=== PATIENT | female | born 1995 | race Caucasian/White ===

== ENCOUNTER 2020-07-08 10:18 | Outpatient (CLI) | payer OTHER, SELFPAY ==
[2020-07-08 11:43] LABS: Hematocrit 39.4 % (37.0-47.0); Hemoglobin 12.8 g/dL (12.0-15.0)
[2020-07-08 11:57] LABS: Glucose 1 Hour PP 50gm Dose 128 mg/dL
[2020-07-08 12:37] LABS: HIV 1/2 Ab P24 Ag Result Negative (Negative)
[2020-07-09 09:32] LABS: Rapid Plasma Reagin Non-Reactive (NonReactive)
== END 2020-07-08 10:19 | disposition home or self-care (01) ==
PROVIDERS: Family Provider Pediatrics; PCP Internal Medicine; Visit Provider Obstetrics & Gynecology
DX: O36.0130 Maternal care for anti-D [Rh] antibodies, third trimester, not applicable or unspecified (principal); Z3A.00 Weeks of gestation of pregnancy not specified
CPT/HCPCS: 36415; 82947; 85014; 85018; 86592; 86703; G0432

== ENCOUNTER 2020-08-27 15:11 | Observation (INO) | payer OTHER, SELFPAY ==
[2020-08-27] VITALS (8 sets, daily range): BP systolic 108–127; BP diastolic 63–81; PULSE 97–108; RESP 20; TEMP 36.5–37.3; BMI 35.9
--- NOTE | 2020-08-27 15:45 | LDADM ---
This patient, [place] Roy, was admitted to [facility] on 08/27/20 at 15:11. Plans for labor, pain management and were discussed with patient. Patient oriented to hospital policies and general routines including ID bracelet, bed and alarms, visiting hours, pain management, procedures, bathroom and other care routines, personal items, smoking policy, room service/diet and guest tray routines, infant security routines, call light, and visiting hours. Patient is encouraged to report perceived risks to care and to ask questions if she does not understand what she is told or what she should do. See OBIX for further documentation.
[2020-08-27 16:17] LABS: Basophils Absolute Auto 0.1 K/mm3 (0.0-0.1); Basophils Percent Auto 0.3 % (0.2-1.2); Eosinophils Absolute Auto 0.1 K/mm3 (0-0.3); Eosinophils Percent Auto 0.3 % (0-4.4); Hematocrit 36.5 % (37.0-47.0); Immature Granulocyte Absolute 0.23 K/mm3 (0.00-0.031); Immature Granulocyte Percent A 1.5 % (0-0.5); Lymphocytes Absolute Auto 2.12 K/mm3 (0.9-3.2); Lymphocytes Percent Auto 13.8 % (18.3-44.2); Mean Corpuscular HGB Conc 32.9 g/dl (32-36); Mean Corpuscular Hemoglobin 28.3 pg (26-34); Mean Corpuscular Volume 86.1 fl (80-100); Mean Platelet Volume 9.2 fl (7.4-10.4); Monocytes Absolute Auto 1.1 K/mm3 (0.1-0.6); Neutrophils Absolute Auto 11.8 K/mm3 (1.3-6.7); Neutrophils Percent Auto 77.1 % (45.5-73.1); Platelet Count Result 349 k/mm3 (150-375); Red Blood Count 4.24 M/mm3 (4.2-5.4); Red Cell Distribution Width 13.2 % (11.5-14.5); White Blood Count 15.3 K/mm3 (4.5-10.0)
[2020-08-27 16:30] LABS: Alanine Aminotransferase 11 U/L (4-35); Albumin Level 3.6 g/dL (3.5-5.1); Alkaline Phosphatase 103 U/L (38-126); Anion Gap 7 mmol/L (8-16); Aspartate Amino Transferase 18 U/L (14-36); Bilirubin,Total 0.1 mg/dL (0.2-1.3); Blood Urea Nitrogen 9 mg/dL (7-17); Calcium 8.8 mg/dL (8.4-10.2); Carbon Dioxide 22 mmol/L (22-30); Chloride 106 mmol/L (98-107); Estimated CRCL calculation 151 ml/min; Estimated Glomerular Filt Rate > 60; Glucose 117 mg/dL (65-105); Potassium 3.5 mmol/L (3.4-5.0); Sodium 135 mmol/L (137-145); Uric Acid 5.6 mg/dL (2.5-7.5)
--- NOTE | 2020-08-31 19:49 | PM.OBTRLD ---
OB - Triage/Final Diagnosis Visit Information Date of evaluation: 08/27/20 Reason for evaluation: decreased movement Comments/Additional reasons for admission: I have assessed the risk for this patient, [place], and determined that she would benefit from observation care. Evaluation Laboratory results: Laboratory Tests 08/27/20 08/27/20 08/27/20 16:04 16:04 16:04 WBC 15.3 H RBC 4.24 Hgb 12.0 Hct 36.5 L MCV 86.1 MCH 28.3 MCHC 32.9 RDW 13.2 Plt Count 349 MPV 9.2 Immature Gran % (Auto) 1.5 H Neut % (Auto) 77.1 H Lymph % (Auto) 13.8 L [place] % (Auto) 7.0 Eos % (Auto) 0.3 Baso % (Auto) 0.3 Lymph # (Auto) 2.12 [place] # (Auto) 1.1 H Eos # (Auto) 0.1 Baso # (Auto) 0.1 Abs Immat Gran (auto) 0.23 H Absolute Neuts (auto) 11.8 H Absolute Nucleated RBC 0.0 Nucleated RBC % 0.0 Sodium 135 L Potassium 3.5 Chloride 106 Carbon Dioxide 22 Anion Gap 7 L BUN 9 Creatinine 0.50 L Estim Creat Clear Calc 151 Estimated GFR > 60 Glucose 117 H Uric Acid 5.6 Calcium 8.8 Total Bilirubin 0.1 L AST 18 ALT 11 Alkaline Phosphatase 103 Total Protein 7.0 Albumin 3.6 KB Hemoglobin Negative
== END 2020-08-27 19:16 | disposition home or self-care (01) ==
PROVIDERS: Advanced Practice Midwife; Admitting Provider Obstetrics & Gynecology; PCP Specialist; Visit Provider Obstetrics & Gynecology
DX: O36.8130 Decreased fetal movements, third trimester, not applicable or unspecified (principal); Z3A.36 36 weeks gestation of pregnancy
CPT/HCPCS: 36415; 80053; 84550; 85025; 85460; G0378; G0379

== ENCOUNTER 2020-08-31 00:01 | Outpatient (CLI) | payer OTHER, SELFPAY ==
[2020-08-31 00:43] VITALS: BMI 35.0
[2020-08-31 00:45] VITALS: BP 111/77; PULSE 84
[2020-08-31 00:47] VITALS: BP 122/80; PULSE 87
[2020-08-31 01:00] VITALS: BP 113/71; PULSE 95
[2020-08-31 01:06] LABS: Basophils Absolute Auto 0.1 K/mm3 (0.0-0.1); Basophils Percent Auto 0.3 % (0.2-1.2); Eosinophils Absolute Auto 0.1 K/mm3 (0-0.3); Eosinophils Percent Auto 0.5 % (0-4.4); Hematocrit 36.1 % (37.0-47.0); Hemoglobin 11.7 g/dL (12.0-15.0); Immature Granulocyte Absolute 0.26 K/mm3 (0.00-0.031); Immature Granulocyte Percent A 1.7 % (0-0.5); Lymphocytes Absolute Auto 2.65 K/mm3 (0.9-3.2); Lymphocytes Percent Auto 17.7 % (18.3-44.2); Mean Corpuscular HGB Conc 32.4 g/dl (32-36); Mean Corpuscular Hemoglobin 27.9 pg (26-34); Mean Corpuscular Volume 86.2 fl (80-100); Mean Platelet Volume 9.2 fl (7.4-10.4); Monocytes Absolute Auto 1.3 K/mm3 (0.1-0.6); Monocytes Percent Auto 8.5 % (2.6-8.5); Neutrophils Absolute Auto 10.7 K/mm3 (1.3-6.7); Neutrophils Percent Auto 71.3 % (45.5-73.1); Platelet Count Result 356 k/mm3 (150-375); Red Blood Count 4.19 M/mm3 (4.2-5.4); Red Cell Distribution Width 13.2 % (11.5-14.5)
[2020-08-31 01:11] LABS: Add Urine Microscopic? YES; Appearance Urine Cloudy (Clear); Bacteria Urine 4+ /hpf; Bilirubin Urine Negative (Negative); Blood Urine 1+ (Negative); Color Urine Yellow (Yellow); Glucose Urine UA Negative (Negative); Ketones Urine Negative (Negative); Leukocyte Esterase Ur Negative LEU/UL (NEGATIVE); Mucus Urine Moderate /lpf; Nitrate Urine Negative (Negative); Protein Urine 1+ mg/dL (Negative); RBC Urine >75 /hpf (0-2); Specific Grav Ur 1.023 (1.001-1.035); Squamous Epithelial Cell Urine Many /hpf (Few); Urobilinogen Urine Negative mg/dL (<2.0); WBC Urine 0-3 /hpf (0-3)
[2020-08-31 01:15] VITALS: BP 110/74; PULSE 92
[2020-08-31 01:17] LABS: Creatinine Urine 119.5 mg/dL; Total Protein Urine Random 15 mg/dL; Ur Ttl Prot Creatinine Ratio 0.13 mg/mg (0-0.20)
[2020-08-31 01:20] LABS: Alanine Aminotransferase 10 U/L (4-35); Albumin Level 3.5 g/dL (3.5-5.1); Alkaline Phosphatase 104 U/L (38-126); Anion Gap 5 mmol/L (8-16); Aspartate Amino Transferase 18 U/L (14-36); Bilirubin,Total < 0.1 mg/dL (0.2-1.3); Blood Urea Nitrogen 11 mg/dL (7-17); Calcium 9.1 mg/dL (8.4-10.2); Carbon Dioxide 23 mmol/L (22-30); Chloride 106 mmol/L (98-107); Estimated CRCL calculation 149 ml/min; Estimated Glomerular Filt Rate > 60; Glucose 92 mg/dL (65-105); Potassium 3.9 mmol/L (3.4-5.0); Sodium 134 mmol/L (137-145); Uric Acid 4.8 mg/dL (2.5-7.5)
[2020-08-31 01:30] VITALS: BP 111/74; PULSE 93
[2020-08-31 01:51] VITALS: BP 122/80; PULSE 87
== END 2020-08-31 01:48 | disposition home or self-care (01) ==
LOC: ANHOBOP 00:38 → ANHOBPP 00:40
PROVIDERS: Advanced Practice Midwife; PCP Specialist; Visit Provider Obstetrics & Gynecology
DX: O13.9 Gestational [pregnancy-induced] hypertension without significant proteinuria, unspecified trimester (principal); Z3A.00 Weeks of gestation of pregnancy not specified
CPT/HCPCS: 36415; 59025; 80053; 81001; 82570; 84156; 84550; 85025; 87086; 87088; 99199; A9270

== ENCOUNTER 2020-09-03 08:43 | Outpatient (RCR) | payer OTHER, SELFPAY ==
[2020-09-03 09:42] VITALS: BP 124/80
== END 2020-09-21 07:39 | disposition home or self-care (01) ==
LOC: ANHOBOP 08:43
PROVIDERS: PCP Specialist; Visit Provider Obstetrics & Gynecology
DX: O36.5930 Maternal care for other known or suspected poor fetal growth, third trimester, not applicable or unspecified (principal); Z3A.37 37 weeks gestation of pregnancy
CPT/HCPCS: 59025

== ENCOUNTER 2020-09-16 06:40 | Inpatient (IN) | payer OTHER, SELFPAY ==
[2020-09-16] VITALS (189 sets, daily range): BP systolic 50–136; BP diastolic 26–102; PULSE 65–280; RESP 16–20; TEMP 36.4–37.4; O2SAT 96–100; BMI 35.9
[2020-09-16] MEDS: OXYTOCIN 30 UNITS/NS 500 ML 30 UNITS/500 ML BAG 125 UNITS IV CONT ×2 (07:18→19:04)
[2020-09-16] MEDS: LACTATED RINGERS 1,000 ML 125 ML IV CONT ×5 (07:19→17:39)
--- NOTE | 2020-09-16 07:21 | WPDANESEPP ---
Anes - Eval Pre Procedure Procedure: labor epidural Date/Time: 09/16/20 07:21 Surgeon: mohan Pre Op Diagnosis: ind Patient Data Age: 24 Gender: F Height: 1.57 m Weight: 89 kg Last Vital Signs Temp 36.5 C 09/16/20 07:14 Pulse 109 H 09/16/20 07:16 BP 123/76 09/16/20 07:16 Allergies Allergy/AdvReac Type Severity Reaction Status Date / Time No Known Allergies Allergy Verified 08/27/20 17:53 Home Medications Medication Instructions Recorded Confirmed Type PNV cmb#95-ferrous fumarate-FA 1 tablet PO DAILY 08/27/20 08/31/20 History [] ondansetron HCl 8 mg PO TID PRN 08/27/20 08/31/20 History Patient hx anesthesia problems: none Family hx anesthesia problems: none PMFSH Past Medical History Medical History (Updated 05/05/19 @ 09:14 by Geneva Cole CRNA) Anxiety Cervical lesion Depression Family History Family History Father Kidney disease Diabetes mellitus Social History Social History Smoking packs per day: 0.5 Smoking cigarettes per day: 10.0 Years smoked: 8 Smoking pack-years: 4.00 Smoking status: Former smoker Tobacco type: cigarettes Second hand tobacco smoke exposure: Yes Substance use: never Gender identity (if verbalized by the patient): Female Spiritual care concerns: No Exam Day of Procedure 09/16/20 07:21
[2020-09-16 07:30] LABS: Basophils Absolute Auto 0.1 K/mm3 (0.0-0.1); Basophils Percent Auto 0.4 % (0.2-1.2); Eosinophils Absolute Auto 0.1 K/mm3 (0-0.3); Eosinophils Percent Auto 0.8 % (0-4.4); Hematocrit 38.6 % (37.0-47.0); Hemoglobin 12.8 g/dL (12.0-15.0); Immature Granulocyte Absolute 0.25 K/mm3 (0.00-0.031); Immature Granulocyte Percent A 1.6 % (0-0.5); Lymphocytes Absolute Auto 2.48 K/mm3 (0.9-3.2); Lymphocytes Percent Auto 15.8 % (18.3-44.2); Mean Corpuscular HGB Conc 33.2 g/dl (32-36); Mean Corpuscular Hemoglobin 28.6 pg (26-34); Mean Corpuscular Volume 86.2 fl (80-100); Mean Platelet Volume 9.6 fl (7.4-10.4); Monocytes Absolute Auto 0.9 K/mm3 (0.1-0.6); Monocytes Percent Auto 5.7 % (2.6-8.5); Neutrophils Absolute Auto 11.9 K/mm3 (1.3-6.7); Neutrophils Percent Auto 75.7 % (45.5-73.1); Platelet Count Result 383 k/mm3 (150-375); Red Blood Count 4.48 M/mm3 (4.2-5.4); Red Cell Distribution Width 13.6 % (11.5-14.5); White Blood Count 15.7 K/mm3 (4.5-10.0)
--- NOTE | 2020-09-16 07:51 | WPDOBADMIT ---
Obstetrics - Admit Note Admission Note: 24 y/o 2 39 weeks here for elective induction of labor. /-2. Arom moderate amount of clear odorless fluid. record reviewed. No pertinent additions to the history and/or any subsequent changes in the physical findings that are not consistent with the expected course of the were found. Additions to the history and/or subsequent changes in the physical findings follow. None.
[2020-09-16 09:27] LABS: Rapid Plasma Reagin Non-Reactive (NonReactive)
[2020-09-16] MEDS: ONDANSETRON INJ 4 MG/2 ML VIAL IV PUSH (13:32)
[2020-09-16] MEDS: SODIUM CHLORIDE 0.9% IV 300 ML 600 ML I-UTERINE (13:47)
--- NOTE | 2020-09-16 18:42 | PM.OBPRVD ---
OB - Delivery Note Procedure Delivery date: 09/16/20 Procedure: events: Meconium Stained Fluid Intrapartal events: None Induction method: per pitocin protocol Delivery augmentation: rupture of membranes Delivery monitor: external FHT, external uterine and internal FHT Route of delivery: Episiotomy description: None Laceration Description: None Specimen: Yes (Velamentous insertion) Quantitative Blood Loss (ml): 36 Anesthesia type: Epidural Complications: Meconium stained fluid. Peds present for delivery. Velamentous insertion of the cord. Narrative: Initially vigorous but at less than 1 minute hr was low. Cord clamped and handed off to nursery staff. Mother and baby stable. Cord gasses collected and handed off to nursery staff. Baby Date of : 09/16/20 Time of : 18:28 Weeks of gestation at delivery: 39 gender: Female presentation: vertex position: Right Occiput Anterior Placenta delivery description: Spontaneous cord vessel description: 3 Vessels and Clamped/Cut score one minute: 6 score five minutes: 9
--- NOTE | 2020-09-16 19:13 | PC.NURSE ---
1904 bag of pitocin hung by Yamil Franco RN
[2020-09-16] MEDS: WITCH HAZEL 40 PADS 1 PAD TOPICAL (20:57)
[2020-09-16] MEDS: BENZOCAINE 20% AER SPR (*SP) 56 GM CAN 1 SPRAY TOPICAL (20:57)
[2020-09-17] MEDS: IBUPROFEN 600 MG TABLET PO ×4 (01:15→20:20)
[2020-09-17 05:00] VITALS: BP 128/68; PULSE 97; RESP 16; TEMP 37.1
[2020-09-17 05:36] LABS: Hematocrit 34.4 % (37.0-47.0); Hemoglobin 11.2 g/dL (12.0-15.0)
--- NOTE | 2020-09-17 07:43 | PM.OBPNVD ---
OB - PN: Subj Subjective Date/time seen: 09/17/20 07:43 Doing well. , minimal lochia. Mood good. Patient comments: pain well controlled OB - PN: Obj Data Labs CBC & Chem 7: 09/17/20 05:05 Labs: Laboratory Results - last 24 hr 09/16/20 09/16/20 09/17/20 07:13 07:13 05:05 Hgb 11.2 L Hct 34.4 L RPR Non-reactive Blood Type O Positive Antibody Screen Negative OB - PN A/P Plan day: 1 Plan: routine care Comments: encouraged to stay one more night given later delivery yesterday and baby in 5# range. Pt amenable. Time Spent With Patient Time: Total time spent is greater than 50% in coordination of care (as documented) at patient's floor/unit and/or counseling patient: Time with patient: less than 15 minutes Exam Narrative: Exam Narrative: NAD abdomen soft, nontender, fundus firm below the umbilicus Extremities nontender, 1+ edema
--- NOTE | 2020-09-17 08:40 | PC.NURSE ---
Mother called out for assist with feeding. Consulted with patient, mother reports has fed well since . Mother has slight nipple discomfort with latch during first part of the feeding that quickly resolves. Reviewed nipple care of lanolin, warm compresses several times per day as needed. Mother reports this is 2nd child to breastfeed, mother stopped first when she found out she was with this child. Reviewed feeding cues, frequencies, duration of feedings, feeding elimination flow sheet, and signs of adequate intake. Demonstrated stimulation techniques to wake infant for feeding. Assisted with infant to breast. Reviewed positioning/alignment in cross cradle, holding breast in U hold and guided asymmetrical latch on. Infant was able to latch within a few attempts. nursed eagerly, with steady draws and frequent swallowing noted. Reviewed signs of a correct latch, effective nursing and suck swallow ratio. was able to maintain latch. Mother reported tenderness at times, infant had slipped to shallow latch. Demonstrated how to adjust latch more deeply while feeding. Mother quickly reports she can feel infant is latched more deeply and has minimal tenderness. Suggested to stimulate infant while feeding to keep infant awake and nursing effectively for increased stimulation and increased intake. Instructed mother to call out for RN assistance if she is unable to latch for feeding or she has discomfort with nursing.
[2020-09-17] MEDS: DOCUSATE SODIUM 100 MG CAPSULE PO (08:53)
[2020-09-17] MEDS: MULTIVIT/MIN/PREN/FOL AC/IRON TABLET 1 TAB PO (08:54)
[2020-09-17 09:20] VITALS: BP 116/77; PULSE 54; RESP 18; TEMP 37.1; O2SAT 100
[2020-09-17 12:15] VITALS: PULSE 54; RESP 18; O2SAT 100
[2020-09-17 14:00] VITALS: BP 109/71; PULSE 75; RESP 16; TEMP 36.9; O2SAT 97
[2020-09-17 17:03] VITALS: BP 125/70; PULSE 72; RESP 16; TEMP 37; O2SAT 98
[2020-09-17 20:20] VITALS: BP 131/81; PULSE 77; RESP 16; TEMP 37.1
[2020-09-18 08:20] VITALS: BP 127/79; PULSE 82; RESP 18; TEMP 36.6; O2SAT 98
[2020-09-18 08:30] VITALS: PULSE 77; RESP 16; O2SAT 98
--- NOTE | 2020-09-18 08:37 | PM.OBPNVD ---
OB - PN: Subj Subjective Date/time seen: 09/18/20 08:37 Patient comments: no complaints baby status: doing well OB - PN: Obj Data Labs CBC & Chem 7: 09/17/20 05:05 OB - PN A/P Plan day: 2 Plan: routine care and discharge home Time Spent With Patient Time: Total time spent is greater than 50% in coordination of care (as documented) at patient's floor/unit and/or counseling patient: Time with patient: less than 15 minutes Exam Narrative: Exam Narrative: NAD abdomen soft, nontender, fundus firm below the umbilicus Extremities nontender, 1+ edema
--- NOTE | 2020-09-18 08:40 | PM.DS ---
DS: Admitting Diagnosis Admitting Diagnosis Admitting Diagnosis: labor DS: Discharge Diagnosis Discharge Diagnosis (1) , delivered: Code(s): O80 - Encounter for full-term uncomplicated delivery Status: Acute DS: Summary Hospital Course Hospital Course: forllowed by uncomplicated course. Time Spent with Patient Time attestation: Total time spent providing and/or coordinating discharge services: Exam Narrative: Exam Narrative: NAD abdomen soft, appropriately tender Ext non tender, 1+ edema DS: Data Data Completed and Pending Pending studies at discharge: Pending at discharge 09/16/20 18:32 Surgical [PTH] Routine Discharge Plan Discharge Attending physician on discharge: Michelle Rolle Discharging Clinician: Michelle Rolle Anticipated Discharge Date/Time: 09/18/20 12:00 Patient Disposition: Home, Self-Care Activity: may shower and pelvic rest Diet: regular Patient Instructions: Antibiotic Form Stand Alone Forms: General Discharge Information Follow-up/Referrals: Fransisco Arango MD [Physician] - (4 weeks) Discharge Medications: Continued PNV cmb#95-ferrous fumarate-FA [] 28 mg iron- 800 mcg Tablet 1 tablet PO DAILY RF: 0 Discontinued ondansetron HCl 8 mg tablet 8 mg PO TID PRN (Reason: Nausea) RF: 0 Date of admission: 09/16/20 06:40 Primary Care Provider: Jack,Dylan Lobo Admitting Provider: Fransisco Arango Attending physician on admission: Fransisco Arango Condition: Stable
[2020-09-18] MEDS: IBUPROFEN 600 MG TABLET PO (09:39)
[2020-09-18] MEDS: MULTIVIT/MIN/PREN/FOL AC/IRON TABLET 1 TAB PO (09:40)
--- NOTE | 2020-09-18 11:57 | PC.NURSE ---
Patient was given the opportunity to view the discharge video Mother & Baby Care, The First Two Weeks and to ask questions. Patient declined viewing the video and has been given the mother/baby guide for home reference.
[2020-09-20 10:22] VITALS: BP 110/69; PULSE 120; RESP 20; TEMP 38; O2SAT 100
== END 2020-09-18 13:05 | disposition home or self-care (01) | DRG 560 ==
LOC: ANHOB2 09-18 08:40 → ANHLDR 09-21 09:55 → ANHOB2 09-21 09:55
PROVIDERS: Advanced Practice Midwife; Admitting Provider Obstetrics & Gynecology; PCP Specialist; Visit Provider Obstetrics & Gynecology
DX: O77.0 Labor and delivery complicated by meconium in amniotic fluid (principal); O43.123 Velamentous insertion of umbilical cord, third trimester; O76 Abnormality in fetal heart rate and rhythm complicating labor and delivery; Z3A.39 39 weeks gestation of pregnancy; Z37.0 Single live birth
CPT/HCPCS: 36415; 85014; 85018; 85025; 86592; 86850; 86900; 86901; 88307; A9270; J2405; J2590; J7030; J7120

== ENCOUNTER 2020-10-27 14:16 | Outpatient (CLI) | payer OTHER, SELFPAY ==
[2020-10-27 17:29] LABS: Beta HCG Quantitative < 2.39 mIU/ML
== END 2020-10-27 14:17 | disposition home or self-care (01) ==
PROVIDERS: PCP Internal Medicine; Visit Provider Advanced Practice Midwife
DX: Z30.9 Encounter for contraceptive management, unspecified (principal)
CPT/HCPCS: 36415; 84702